=== PATIENT | female | born 1995 | race Two or more races ===

== ENCOUNTER 2019-08-13 21:32 | Emergency (ER) | payer BC ==
[~2019-08-13] VITALS: Ht 157.5 cm; Wt 83.8 kg
[2019-08-13 21:35] VITALS: BP 121/73
[2019-08-13 22:53] LABS: ALBUMIN 3.4 g/dL (3.4-5.0); ANION GAP 5 mmol/L (5-15); CALCIUM 8.5 mg/dL (8.5-10.1); CHLORIDE 108 mmol/L (98-107)
[2019-08-13 22:56] LABS: MEAN CORPUSCULAR HEMOGLOBIN 15.5 pg (27.0-34.8); MEAN CORPUSCULAR VOLUME 54.8 fL (80-100); MEAN PLATELET VOLUME 8.2 fL (7.4-10.4); PLATELET COUNT 367 x10^3/uL (130-400); RED BLOOD COUNT 4.72 x10^6/uL (3.82-5.3); RED CELL DISTRIBUTION WIDTH 22.7 % (9.6-15.2)
[2019-08-13] MEDS ORDERED: KETOROLAC 30 MG/1 ML IM ONE (23:00)
[2019-08-13] MEDS ORDERED: KETOROLAC 60 MG/2 ML ONE (23:02)
--- NOTE | 2019-08-13 23:06 | NUR ---
PT MEDICATED PER EMAR. 5 RIGHTS ADDRESSED.
[2019-08-13 23:29] LABS: MEAN CORPUSCULAR HGB CONC 28.3 g/dL (32.4-35.8)
[2019-08-13 23:32] LABS: BASOPHILS # (AUTO) 0.03 x10^3/uL (0-0.1); BASOPHILS % (AUTO) 1 % (0-1); EOSINOPHILS % (AUTO) 2 % (1-7); LYMPHOCYTES # (AUTO) 2.04 x10^3/uL (1-3.4); LYMPHOCYTES % (AUTO) 34 % (22-44); MD SCAN; MONOCYTES # (AUTO) 0.54 x10^3/uL (0.2-0.8); MONOCYTES % (AUTO) 9 % (2-9); NEUTROPHILS # (AUTO) 3.26 x10^3/uL (1.8-6.8); NEUTROPHILS % (AUTO) 55 % (42-75)
--- NOTE | 2019-08-13 23:34 | NUR ---
PT REQUESTING TEST. ORDER ADDED ON BY DR. DUNN
--- NOTE | 2019-08-13 23:51 | NUR ---
PT AMBULATORY TO RESTROOM, STEADY GAIT NOTED. BACK TO BED WITHOUT DIFFICULTY
--- NOTE | 2019-08-14 00:20 | NUR ---
CHART UP FOR RECHECK
--- NOTE | 2019-08-14 00:51 | NUR ---
Patient/Caregiver given discharge instructions and they have confirmed that they understand the instructions. Patient ambulatory with steady gait.
== END 2019-08-14 00:53 | disposition home or self-care (01) ==
LOC: ED 08-14 00:45
DX: R07.89 Other chest pain (principal); D50.0 Iron deficiency anemia secondary to blood loss (chronic); J45.909 Unspecified asthma, uncomplicated; Z87.01 Personal history of pneumonia (recurrent)
CPT/HCPCS: 36415; 71046; 80048; 82040; 84703; 85025; 93005; 96372; 99284; J1885